=== PATIENT | female | born 1985 | race Caucasian/White ===

== ENCOUNTER 2020-01-13 10:20 | Emergency (ER) | payer SELFPAY ==
[2020-01-13] MEDS ORDERED: NA CHLORIDE 0.9% 1,000 ML ONE ×2 (11:17→13:34)
[2020-01-13] MEDS ORDERED: ONDANSETRON 4 MG/2 ML VIAL ONE (11:17)
[2020-01-13 11:26] LABS: Absolute Lymphocytes (CBC) 1.6 K/uL (0.7-4.9); Basophils % 0.5 % (0-1.3); Hematocrit 30.5 % (36.0-45.0); Lymphocytes % 20.4 % (15.3-44.8); MPV 8.6 fL (7.6-11.3)
[2020-01-13 11:40] LABS: Albumin 3.6 g/dL (3.4-5.0); Bilirubin Direct 0.3 mg/dL (0-0.2); Bilirubin Total 1.1 mg/dL (0.2-1.0); Potassium 3.7 mmol/L (3.5-5.1); Protein, Total 7.1 g/dL (6.4-8.2)
[2020-01-13 11:56] LABS: Anisocytosis 1+; Blood Morphology Comment NOTED (NOT SEEN); Elliptocytes 1+; Platelet Estimate ADEQ; Urine White Blood Cell Casts OK
[2020-01-13] MEDS ORDERED: FENTANYL CITR 100 MCG/2 ML ONE (11:58)
--- NOTE | 2020-01-13 12:29 | RAD REPORT ---
EXAM DESCRIPTION: CT - Abdomen Pelvis W Contrast - 01/13/2020 12:18 pm CLINICAL HISTORY: abdominal pain COMPARISON: No comparisons TECHNIQUE: Biphasic, helical CT imaging of the abdomen and pelvis was performed following 100 ml non -ionic IV contrast. Oral contrast was given. All CT scans are performed using dose optimization technique as appropriate and may include automated exposure control or mA/KV adjustment according to patient size. FINDINGS: No suspicious findings in the lung bases. Liver is enlarged with 23 cm craniocaudal dimension. 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 A small 12 mm cyst is present along the inferior capsular margin not regarded as acutely signific ant. Patient has a periportal edema pattern which is a nonspecific process can occur with hepatitis o r secondary to a systemic process. This may be a response to a subsequently detailed renal finding. No splenomegaly. No acute pancreatic process. Moderate right-sided hydronephrosis is present secondary to a 3 mm UVJ stone. This causes delayed fun ction of the right kidney. No pyelonephritis or acute renal parenchymal process. No solid mass lesion . No bladder abnormalities. No adrenal abnormalities. Uterus and ovaries show no suspicious findings for age. Physiologic quantity of free fluid is present . No dilated bowel loops or bowel wall thickening. Appendix is normal. Moderate stool volume present. N o free air, free fluid or inflammatory stranding. No hernia, mass or bulky lymphadenopathy. No suspicious bony findings. IMPRESSION: Moderate right-sided hydronephrosis secondary to a 3 mm UVJ calculus. Additional nonacute findings detailed in the body of the report.
[2020-01-13] MEDS ORDERED: KETOROLAC 30 MG/ML INJ ONE (13:34)
[2020-01-13] MEDS ORDERED: DIPHENHYDRAMINE 50 MG/ML VIAL ONE (14:44)
[2020-01-13] MEDS ORDERED: NA CHLORIDE 0.9% 100 ML IV ONE (14:44)
[2020-01-13] MEDS ORDERED: METOCLOPRAMIDE 10 MG/2mL INJ ONE (14:44)
--- NOTE | 2020-01-13 18:19 | ER ---
Nurse's Notes [facility] Name: Charlee Ocasio Age: 34 yrs Sex: Female : 1985 Arrival Date: 01/13/2020 Time: 10:22 Bed 27 Private MD: Diagnosis: Calculus of ureter Presentation: 01/13 10:38 Presenting complaint: Right flank pain and nausea x 2 hrs. Transition of care: patient hb was not received from another setting of care. Onset of symptoms was January 13, 2020. Risk Assessment: Do you want to hurt yourself or someone else? Patient reports no desire to harm self or others. Care prior to arrival: None. 10:38 Method Of Arrival: Wheelchair hb 10:38 Acuity: LINDA 3 hb Historical: - Allergies: 10:39 No Known Allergies; hb - Home Meds: 10:39 None [Active]; hb - PMHx: 10:39 None; hb - PSHx: 10:39 Tubal ligation; hb - Immunization history:: Adult Immunizations up to date. - Coronavirus screen:: The patient has NOT traveled to [place] in the past 14 days. The patient has NOT had contact with known/suspected case of Coronavirus? Proceed with normal triage procedures. - Social history:: Smoking status: Patient denies any tobacco usage or history of. - Ebola Screening: : No symptoms or risks identified at this time. Screenin:16 Abuse screen: Denies threats or abuse. Denies injuries from another. Nutritional aj1 screening: No deficits noted. Tuberculosis screening: No symptoms or risk factors identified. Assessment: 11:16 General: Appears uncomfortable, ill, Behavior is calm, cooperative, appropriate for aj1 age. Pain: Complains of pain in posterior aspect of right lateral abdomen and anterior aspect of right lateral abdomen Pain does not radiate. Neuro: Level of Consciousness is awake, alert, obeys commands, Oriented to person, place, time, situation. Cardiovascular: Patient's skin is warm and dry. Respiratory: Airway is patent Respiratory effort is even, unlabored, Respiratory pattern is regular, symmetrical. GI: Abdomen is round Bowel sounds present X 4 quads. Reports bloating, nausea, vomiting, Patient currently denies diarrhea. : No signs and/or symptoms were reported regarding the genitourinary system. EENT: No signs and/or symptoms were reported regarding the EENT system. Derm: No signs and/or symptoms reported regarding the dermatologic system. Skin is pink, warm \T\ dry. normal. Musculoskeletal: No signs and/or symptoms reported regarding the musculoskeletal system. Circulation, motion, and sensation intact. 11:57 Reassessment: Patient appears in no apparent distress at this time. No changes from aj1 previously documented assessment. Patient and/or family updated on plan of care and expected duration. Pain level reassessed. Patient is alert, oriented x 3, equal unlabored respirations, skin warm/dry/pink. 12:08 Reassessment: Patient transported to [place] via wheelchair. aj1 13:27 Reassessment: Patient appears in no apparent distress at this time. No changes from aj1 previously documented assessment. Patient and/or family updated on plan of care and expected duration. Pain level reassessed. Patient is alert, oriented x 3, equal unlabored respirations, skin warm/dry/pink. 13:55 Reassessment: Patient and/or family updated on plan of care and expected duration. Pain aj1 level reassessed. General: Appears in no apparent distress. comfortable, Behavior is calm, cooperative, appropriate for age. Neuro: Level of Consciousness is awake, alert, obeys commands. Cardiovascular: Patient's skin is warm and dry. Respiratory: Airway is patent Respiratory effort is even, unlabored, Respiratory pattern is regular, symmetrical. Derm: No signs and/or symptoms reported regarding the dermatologic system. Skin is pink, warm \T\ dry. normal. Musculoskeletal: No signs and/or symptoms reported regarding the musculoskeletal system. Circulation, motion, and sensation intact. 14:09 Reassessment: Patient and/or family updated on plan of care and expected duration. Pain ls4 level reassessed. Patient is alert, oriented x 3, equal unlabored respirations, skin warm/dry/pink. Patient states symptoms have improved. Vital Signs: 10:39 BP 102 / 59; Pulse 61; Resp 16; Temp 98.2; Pulse Ox 100% on R/A; Weight 54.43 kg; hb Height 5 ft. 3 in. (160.02 cm); Pain 10/10; 11:57 BP 121 / 66; Pulse 51; Resp 18; Pulse Ox 100% on R/A; aj1 13:27 BP 98 / 50; Pulse 73; Resp 18; Pulse Ox 100% on R/A; aj1 14:10 BP 116 / 65; Pulse 58; Resp 14; Pulse Ox 100% on R/A; Pain 4/10; ls4 15:10 BP 117 / 75; Pulse 79; Resp 14; Pulse Ox 99% on R/A; Pain 3/10; ls4 16:00 BP 119 / 75; Pulse 71; Resp 16; Pulse Ox 99% on R/A; Pain 3/10; ls4 17:00 BP 115 / 70; Pulse 75; Resp 16; Temp 98; Pulse Ox 99% on R/A; Pain 3/10; ls4 17:50 BP 109 / 64; Pulse 71; Resp 14; Pulse Ox 99% on R/A; Pain 3/10; ls4 10:39 Body Mass Index 21.26 (54.43 kg, 160.02 cm) hb ED Course: 10:22 Patient arrived in ED. as 10:38 Triage completed. hb 10:40 Arm band placed on. hb 10:41 Lora Perera, RN is Primary Nurse. aj 10:44 Samuel Santana PA is PHCP. [facility] 10:44 Damian Cantor MD is Attending Physician. [facility] 11:09 No provider procedures requiring assistance completed. Initial lab(s) drawn, by , mick sent to lab. Inserted saline lock: 20 gauge in right antecubital area, using aseptic technique. Blood collected. 11:16 Patient has correct armband on for positive identification. Bed in low position. Call aj1 light in reach. Pulse ox on. NIBP on. 12:26 CT Abd/Pelvis - IV Contrast Only In Process Unspecified. EDMS Administered Medications: 11:15 Drug: NS 0.9% 1000 ml Route: IV; Rate: 1 bolus; Site: right antecubital; aj1 11:16 Drug: Zofran 4 mg Route: IVP; Site: right antecubital; aj1 15:06 Follow up: Response: No adverse reaction; Marked relief of symptoms ls4 11:55 Drug: fentaNYL (PF) 25 mcg Route: IVP; Site: right antecubital; aj1 13:36 Drug: NS 0.9% 1000 ml Route: IV; Rate: 1 bolus; Site: right antecubital; aj1 13:36 Drug: Ketorolac 30 mg Route: IVP; Site: right antecubital; aj1 14:02 Follow up: Response: No adverse reaction; Pain is decreased ls4 14:46 Drug: Reglan 10 mg Route: IVP; Site: right antecubital; ls4 15:11 Drug: Benadryl 25 mg Route: IVP; Site: right antecubital; ls4 Outcome: 18:16 Discharge ordered by . nehemias 18:32 Discharged to home ambulatory. ls4 18:32 Condition: stable 18:32 Discharge instructions given to patient, family, Instructed on discharge instructions, follow up and referral plans. medication usage, Demonstrated understanding of instructions, follow-up care, medications, Prescriptions given X 1, 3. 18:39 Patient left the ED. ls4 Signatures: Dispatcher [employer] EDLora Huertas RN RN aj1 Samuel Santana PA PA jmm Martinez, Amelia as Baxter, Heather, RN RN Belle Matias RN RN ls4
--- NOTE | 2020-01-13 18:20 | EDPHYS ---
Physician Documentation [facility] Name: Charlee Ocasio Age: 34 yrs Sex: Female : 1985 Arrival Date: 01/13/2020 Time: 10:22 Bed 27 Private MD: ED Physician Damian Cantor HPI: 01/13 10:45 This 34 yrs old Female presents to ER via Wheelchair with complaints of m Abdominal Pain. 10:45 The patient presents with abdominal pain. Onset: The symptoms/episode began/occurred jm acutely, today. The symptoms radiate to the right flank. Associated signs and symptoms: Pertinent positives: vomiting. The symptoms are described as achy. This is a 34 year old female with no chronic medical conditions that presents to the ED with complaints of right flank pain beginning this morning with vomiting. Pain radiates to the lower abdomen. . Historical: - Allergies: 10:39 No Known Allergies; hb - Home Meds: 10:39 None [Active]; hb - PMHx: 10:39 None; hb - PSHx: 10:39 Tubal ligation; hb - Immunization history:: Adult Immunizations up to date. - Coronavirus screen:: The patient has NOT traveled to [place] in the past 14 days. The patient has NOT had contact with known/suspected case of Coronavirus? Proceed with normal triage procedures. - Social history:: Smoking status: Patient denies any tobacco usage or history of. - Ebola Screening: : No symptoms or risks identified at this time. ROS: 10:45 Constitutional: Negative for fever, chills, and weight loss, Cardiovascular: Negative jmm for chest pain, palpitations, and edema, Respiratory: Negative for shortness of breath, cough, wheezing, and pleuritic chest pain. 10:45 Abdomen/GI: Positive for abdominal pain, vomiting. 10:45 Back: Positive for flank pain. 10:45 All other systems are negative. Exam: 10:45 Head/Face: atraumatic. Eyes: EOMI, no conjunctival erythema appreciated ENT: Moist jmm Mucus Membranes Neck: Trachea midline, Supple Chest/axilla: Normal chest wall appearance and motion. Cardiovascular: Regular rate and rhythm. No edema appreciated Respiratory: Normal respirations, no respiratory distress appreciated 10:45 Constitutional: The patient appears alert, awake, obviously ill, in obvious pain. 10:45 Abdomen/GI: Inspection: abdomen appears normal, Bowel sounds: normal, Palpation: soft, moderate abdominal tenderness, in the right lower quadrant. 10:45 Back: CVA tenderness, that is mild, is noted on the right. 10:45 Musculoskeletal/extremity: ROM: intact in all extremities. 10:45 Skin: Appearance: Color: normal in color. 10:45 Neuro: Orientation: is normal, Mentation: is normal, Memory: is normal. 10:45 Psych: Behavior/mood is pleasant, cooperative. Vital Signs: 10:39 BP 102 / 59; Pulse 61; Resp 16; Temp 98.2; Pulse Ox 100% on R/A; Weight 54.43 kg; hb Height 5 ft. 3 in. (160.02 cm); Pain 10/10; 11:57 BP 121 / 66; Pulse 51; Resp 18; Pulse Ox 100% on R/A; aj1 13:27 BP 98 / 50; Pulse 73; Resp 18; Pulse Ox 100% on R/A; aj1 14:10 BP 116 / 65; Pulse 58; Resp 14; Pulse Ox 100% on R/A; Pain 4/10; ls4 15:10 BP 117 / 75; Pulse 79; Resp 14; Pulse Ox 99% on R/A; Pain 3/10; ls4 16:00 BP 119 / 75; Pulse 71; Resp 16; Pulse Ox 99% on R/A; Pain 3/10; ls4 17:00 BP 115 / 70; Pulse 75; Resp 16; Temp 98; Pulse Ox 99% on R/A; Pain 3/10; ls4 17:50 BP 109 / 64; Pulse 71; Resp 14; Pulse Ox 99% on R/A; Pain 3/10; ls4 10:39 Body Mass Index 21.26 (54.43 kg, 160.02 cm) hb MDM: 10:52 [facility] 16:54 Data reviewed: vital signs, nurses notes. Counseling: I had a detailed discussion with [facility] the patient and/or guardian regarding:. 18:11 Data reviewed: lab test result(s), radiologic studies, CT scan. Counseling: I had a [facility] detailed discussion with the patient and/or guardian regarding: the historical points, exam findings, and any diagnostic results supporting the discharge/admit diagnosis, lab results, radiology results, the need for outpatient follow up, to return to the emergency department if symptoms worsen or persist or if there are any questions or concerns that arise at home. ED course: Patient states feeling much better. Patient advised to follow up with urology for further evaluation. . 01/13 10:45 Order name: Basic Metabolic Panel; Complete Time: 11:57 [facility] 01/13 10:45 Order name: CBC with Diff; Complete Time: 11:58 [facility] 01/13 10:45 Order name: Creatinine for Radiology; Complete Time: 11:57 [facility] 01/13 10:45 Order name: Hepatic Function; Complete Time: 11:57 [facility] 01/13 10:45 Order name: Lipase; Complete Time: 11:57 [facility] 01/13 11:19 Order name: Lactate; Complete Time: 13:15 [facility] 01/13 11:19 Order name: Procalcitonin; Complete Time: 13:31 [facility] 01/13 11:19 Order name: Blood Culture Adult (2) [facility] 01/13 11:19 Order name: AMMONIA; Complete Time: 12:42 [facility] 01/13 11:58 Order name: CBC Smear Scan; Complete Time: 11:58 [facility] 01/13 17:22 Order name: Lactate Sepsis 2 HR Follow-up; Complete Time: 17:35 [facility] 01/13 18:13 Order name: Urine Dipstick--Ancillary (enter results) [facility] 01/13 18:15 Order name: Urine --Ancillary (enter results) [facility] 01/13 10:45 Order name: IV Saline Lock; Complete Time: 11:15 [facility] 01/13 10:45 Order name: Labs collected and sent; Complete Time: 11:15 [facility] 01/13 11:19 Order name: CT Abd/Pelvis - IV Contrast Only; Complete Time: 13:15 [facility] 01/13 17:43 Order name: Urine Dipstick-Ancillary (obtain specimen); Complete Time: 18:15 [facility] Administered Medications: 11:15 Drug: NS 0.9% 1000 ml Route: IV; Rate: 1 bolus; Site: right antecubital; aj1 11:16 Drug: Zofran 4 mg Route: IVP; Site: right antecubital; aj1 15:06 Follow up: Response: No adverse reaction; Marked relief of symptoms ls4 11:55 Drug: fentaNYL (PF) 25 mcg Route: IVP; Site: right antecubital; aj1 13:36 Drug: NS 0.9% 1000 ml Route: IV; Rate: 1 bolus; Site: right antecubital; aj1 13:36 Drug: Ketorolac 30 mg Route: IVP; Site: right antecubital; aj1 14:02 Follow up: Response: No adverse reaction; Pain is decreased ls4 14:46 Drug: Reglan 10 mg Route: IVP; Site: right antecubital; ls4 15:11 Drug: Benadryl 25 mg Route: IVP; Site: right antecubital; ls4 Disposition: 19:08 Co-signature as Attending Physician, Damian Cantor MD I agree with the assessment and kdr plan of care. Disposition: 01/13/20 18:16 Discharged to Home. Impression: Calculus of ureter. - Condition is Stable. - Discharge Instructions: Kidney Stones. - Prescriptions for Zofran ODT 4 mg Oral tablet,disintegrating - place 1 tablet by TRANSLINGUAL route every 4-6 hours; 20 tablet. Tylenol- Codeine #3 300-30 mg Oral Tablet - take 1 tablet by ORAL route every 6 hours As needed; 20 tablet. Flomax 0.4 mg Oral Capsule, Sust. Release 24 hr - take 1 capsule by ORAL route once daily 1/2 hour following the same meal each day; 30 capsule. - Medication Reconciliation Form, Thank You Letter, Antibiotic Education, Prescription Opioid Use form. - Follow up: Private Physician; When: 2 - 3 days; Reason: Recheck today's complaints, Continuance of care, Re-evaluation by your physician. Signatures: Dispatcher [employer] [facility] Lora Perera RN RN aj1 Damian Cantor MD MD kdr Mickail, Joel, PA PA jmm Baxter, Heather, RN RN hb Stewart, Lisa, RN RN ls4 Corrections: (The following items were deleted from the chart) 16:52 14:18 LACTATE+C.LAB.BRZ ordered. [facility] 18:39 18:16 01/13/2020 18:16 Discharged to Home. Impression: Calculus of ureter. Condition is ls4 Stable. Forms are Medication Reconciliation Form, Thank You Letter, Antibiotic Education, Prescription Opioid Use. Follow up: Private Physician; When: 2 - 3 days; Reason: Recheck today's complaints, Continuance of care, Re-evaluation by your physician. nehemias
[2020-01-13 18:40] LABS: Urine Blood 3+ (NEG); Urine Glucose NEGATIVE (NEG); Urine Protein 1+ (NEG)
[2020-01-13 21:03] VITALS: BP 116/65; O2SAT 100
== END 2020-01-13 18:39 | disposition home or self-care (01) ==
LOC: ER 10:20
DX: N20.1 Calculus of ureter (principal)
CPT/HCPCS: 36415; 74177; 80048; 80076; 81003; 81025; 82140; 83605; 83690; 84145; 85025; 87040; 96374; 96375; 99284; J1200; J2405; J2765; J3010; J7030; Q9967